=== PATIENT | female | born 1990 | race Caucasian/White ===

== ENCOUNTER 2020-10-12 10:52 | Outpatient (CLI) | payer OTHER, SELFPAY ==
--- NOTE | ~2020-10-12 | CT_ITS ---
EXAMINATION: CT abdomen pelvis wo con EXAM DATE: 10/12/2020 11:21 INDICATION: Left flank pain, LLQ pain. TECHNIQUE: Spiral CT of the abdomen and pelvis was performed without contrast. Axial, coronal and sag ittal images were reviewed. The dose-length product (DLP) for this examination was 1173.39 mGy-cm. The exposure was tailored according to patient size (auto mA exposure control), and iterative reconst ruction (ASIR) was used as additional dose reduction technique. There is no prior study for comparis on. FINDINGS: There is no nephrolithiasis or hydronephrosis. The uterus is unremarkable. The bladder is unremarkable. The liver, spleen, adrenal glands and pancreas are unremarkable. Gallbladder is un remarkable. No biliary obstruction. There is no retroperitoneal or pelvic lymphadenopathy. Small umbilical fat-containing hernia. The appendix is normal. The stomach and small bowel are unremarkable. There is mild scattered colon ic diverticulosis. There is no adjacent inflammatory change to suggest diverticulitis. No free intr aperitoneal gas. The heart is normal in size. There are no pericardial or pleural effusions. The lung bases are unremarkable. The bones are unremarkable. IMPRESSION: 1. No nephrolithiasis, hydronephrosis or acute intra-abdominal findings. Reviewed, dictated and finalized at location B. [employer]IE[employer]
== END 2020-10-12 10:53 ==
PROVIDERS: PCP Physician Assistant; Visit Provider Physician Assistant
DX: R10.32 Left lower quadrant pain (principal)
CPT/HCPCS: 74176

== ENCOUNTER 2021-06-12 11:38 | Emergency (ER) | payer OTHER, SELFPAY ==
[2021-06-12 12:02] VITALS: BP 135/97; PULSE 95; RESP 16; TEMP 36.8; O2SAT 98
--- NOTE | 2021-06-12 12:39 | ED.GENADULT ---
HPI - General Adult General Chief complaint: Unspecified Stated complaint: Lt side facial swelling Source: patient Mode of arrival: ambulatory Limitations: no limitations History of Present Illness HPI narrative: Patient has Related Data Home Medications Medication Instructions Recorded Confirmed alprazolam 0.25 mg tablet 0.25 mg PO .prn tablet 09/01/20 06/12/21 escitalopram oxalate 20 mg tablet 20 mg PO DAILY 09/01/20 06/12/21 Allergies Allergy/AdvReac Type Severity Reaction Status Date / Time Penicillins Allergy Mild Unknown Verified 06/12/21 12:13 Review of Systems Review of Systems: CONSTITUTIONAL: Denies fever, chills, or sweats. EYES: Denies visual changes, redness, or discharge. ENT: Denies rhinorrhea, congestion, sore throat, or otalgia. Reports left facial swelling, tingling and itching CARDIOVASCULAR: Denies chest pain, palpitations, or edema. RESPIRATORY: Denies cough or dyspnea. GASTROINTESTINAL: Denies abdominal pain, nausea, vomiting, or diarrhea. GENITOURINARY: Denies dysuria or hematuria. SKIN: Denies rash or itching. MUSCULOSKELETAL: Denies back pain, joint pain, or myalgia. NEUROLOGIC: Denies headache, numbness, dizziness, or weakness. PSYCHIATRIC: Denies anxiety or depression. [facility] Past Medical History Medical History Anxiety Pneumonia 2020 Surgical History Surgical History History of delivery Family History Family History Grandparent Diabetes mellitus Grandparent Acute myocardial infarction Father Hypertension High cholesterol Social History Social History (Updated 06/12/21 @ 12:46 by JASON Rajan) Smoking status: Never smoker Alcohol intake: never Substance use: never Living arrangements: with family Comments At the time of signature, I have reviewed and agree with nursing past medical, surgical, social, and family history unless otherwise noted. Please see nursing chart for further information. There is no relevant family history pertinent to the presenting complaint. Exam Narrative: GENERAL: Well-appearing, well-nourished, and in no acute distress. HEAD: Normocephalic, atraumatic. EYES: EOMI. No redness or drainage. Conjunctiva are normal. ENT: Mucous membranes pink and moist. Nares clear. No rhinorrhea. TMs normal bilaterally. Throat normal. Uvula midline. NECK: AROM. Supple. Left cervical lymphadenopathy. CHEST: No respiratory distress. HEART: Regular rate and rhythm. EXTREMITIES: Normal range of motion. SKIN: Warm, dry, no rash. NEURO: No focal deficits. Alert and oriented x3. Gait steady. PSYCH: Normal affect. No signs of depression or anxiety. Course Vital Signs Vital signs: Vital Signs Temperature 36.8 C 06/12/21 12:02 Pulse Rate 95 06/12/21 12:02 Respiratory Rate 16 06/12/21 12:02 Blood Pressure 135/97 H 06/12/21 12:02 Pulse Oximetry 98 06/12/21 12:02 Temperature 36.8 C 06/12/21 12:02 Pulse Rate 95 06/12/21 12:02 Respiratory Rate 16 06/12/21 12:02 Blood Pressure 135/97 H 06/12/21 12:02 Pulse Oximetry 98 06/12/21 12:02 Reviewed-patient is informed that they may have pre-hypertension or hypertension based on a blood pressure reading. I recommend the patient call the primary care provider listed on their discharge instructions or a physician of their choice this week to arrange follow-up for further evaluation of possible pre-hypertension or hypertension. Medical Decision Making Differential Diagnosis Differential Diagnosis: Dental abscess, parotiditis, sialadenitis, sialolithiasis, Norton's palsy, allergic reaction Vital Signs Vital Signs: Vital Signs Temperature 36.8 C 06/12/21 12:02 Pulse Rate 95 06/12/21 12:02 Respiratory Rate 16 06/12/21 12:02 Blood Pressure 135/97 H 06/12/21 12:02 Pulse Oximetr
== END 2021-06-12 12:46 | disposition home or self-care (01) ==
PROVIDERS: Emergency Provider Nurse Practitioner; PCP Physician Assistant
DX: R22.0 Localized swelling, mass and lump, head (principal); F41.9 Anxiety disorder, unspecified
CPT/HCPCS: 81025; 99213; G0463

== ENCOUNTER 2023-10-13 07:49 | Outpatient (CLI) | payer OTHER, SELFPAY ==
--- NOTE | 2023-10-13 08:03 | ECG_ITS ---
Measurements Intervals Wallace Rate: 65 P: 52 HI: 154 QRS: 24 QRSD: 102 T: 13 QT: 399 QTc: 415 Interpretive Statements SINUS RHYTHM WITH SINUS ARRHYTHMIA LOW QRS VOLTAGE IN PRECORDIAL LEADS BORDERLINE ECG NO PREVIOUS ECG AVAILABLE FOR COMPARISON Electronically Signed On 10-13-2023 8:28:51 [employer] by Neel Sims D.O.
== END 2023-10-13 07:50 | disposition home or self-care (01) ==
LOC: ANHCARD 07:54
PROVIDERS: PCP Physician Assistant; Visit Provider Nurse Practitioner Family
DX: R93.1 Abnormal findings on diagnostic imaging of heart and coronary circulation (principal); Z13.6 Encounter for screening for cardiovascular disorders
CPT/HCPCS: 93005

== ENCOUNTER → 2025-04-15 14:08 | Outpatient (CLI) | payer OTHER, SELFPAY ==
--- NOTE | ~2025-04-15 | XR_ITS ---
EXAMINATION: XR abdomen/kub 1V DATE: 04/15/2025 14:22 INDICATION: Right flank pain TECHNIQUE: A supine view of the abdomen on 2 radiographs was obtained. COMPARISON: None. FINDINGS: Small amount of colonic gas and stool, predominantly in the proximal colon. No dilated loops of gas-filled bowel to suggest obstruction. No suspicious calcifications in the abdomen or pelvis. Lung bases are clear. Heart size is normal. Bones and soft tissues are unremarkable. IMPRESSION: 1. Normal bowel gas pattern. No calcifications in the abdomen or pelvis. Reviewed, dictated and finalized at location A.
== END ==
LOC: EXPCRAD 14:11
PROVIDERS: PCP Physician Assistant; Visit Provider Physician Assistant
DX: R10.9 Unspecified abdominal pain (principal)
CPT/HCPCS: 74018

== ENCOUNTER 2025-08-04 16:11 | Emergency (ER) | payer OTHER, SELFPAY ==
--- OUTSIDE RECORDS SUMMARY | 2025-08-04 16:14 | XMS_ITS | Clinical Summary ---
Author Organization [facility] [facility] Address [address] [place] [address] Care Team Providers Care Analytics Developer Name Role Phone Luisana Phillips Primary Care Provider [phone]- [phone] Allergies Active Allergy Reactions Criticality Noted Date Comments Doxycycline Rash Medium 11/06/2023 Pt has rash and raised red masked area around mouth Penicillin G Benzathine Swelling Medium 09/06/2019 swelling Medications albuterol HFA (Ventolin HFA) 90 mcg/actuation inhalerIndicatio ns:Lower respiratory infection Inhale 2 puffs every 4 (four) hours as needed for wheezing or shortness of breath 8 g 5 0 Active fluticasone propionate (FLONASE) 50 mcg/actuation nasal sprayIndications :Allergic rhinitis due to pollen, unspecified seasonality Administer 2 sprays into each nostril daily 16 g 5 2 Active omeprazole (PriLOSEC) 20 mg capsule Take 1 capsule (20 mg total) by mouth 2 (two) times a day before breakfast and dinner 60 capsule 3 4 Active traZODone (DESYREL) 50 mg tabletIndication s:Insomnia, unspecified type Take 1 tablet (50 mg total) by mouth nightly 90 tablet 2 4 Active ondansetron (ZOFRAN) 4 mg tabletIndication s:Nausea Take 1 tablet (4 mg total) by mouth every 8 (eight) hours as needed for nausea or vomiting 20 tablet 5 Active desvenlafaxine ER (PRISTIQ) 100 mg 24 hr tablet Take 2 tablets (200 mg total) by mouth daily 5 Active propranolol LA (INDERAL LA) 80 mg 24 hr capsule Take 1 capsule (80 mg total) by mouth daily 5 Active LORazepam (ATIVAN) 1 mg tablet Take 1 tablet (1 mg total) by mouth 3 (three) times a day as needed 5 Active valACYclovir (VALTREX) 1 gram tablet TAKE 1 TABLET(1000 MG) BY MOUTH DAILY 90 tablet 1 5 Active cyclobenzaprine (FLEXERIL) 10 mg tablet TAKE 1 TABLET(10 MG) BY MOUTH EVERY NIGHT 20 tablet 5 Active hydroCHLOROthiaz alberta (HYDRODIURIL) 25 mg tabletIndication s:Hypertension, essential TAKE 1 TABLET(25 MG) BY MOUTH DAILY 90 tablet 1 5 Active Active Problems Problem Noted Date Diagnosed Date Positive depression screening 05/23/2025 Assessment & Plan (05/23/2025 7:45 AM CDT): PHQ-27 Patient has ongoing depression due to losing her daughter. Morbid obesity 05/23/2025 Assessment & Plan (05/23/2025 8:16 AM CDT): Patient has an obesity-related condition (not limited to: hypertension, obstructive sleep apnea, osteoarthritis, hyperlipidemia, diabetes, etc.). Therefore, morbid obesity may be documented for patients with a BMI between 35.00-39.99. Trichomonas vaginitis 05/23/2025 Assessment & Plan (05/23/2025 8:16 AM CDT): Trichomonas was treated. Partner was also treated. Test of cure today. Reviewed with patient's expectations of results and when available if negative may return back to intercourse. MARIYA (obstructive sleep apnea) 05/11/2025 BMI 38.0-38.9,adult 04/30/2025 Assessment & Plan (05/23/2025 7:44 AM CDT): Discussed the patient's BMI. The BMI is above average. BMI management plan is completed. BMI Follow-up includes: nutrition counseling, exercise counseling and education provided. Assessment & Plan (04/30/2025 2:04 PM CDT): Discussed the patient's BMI. The BMI is above average. BMI management plan is completed. BMI Follow-up includes: nutrition counseling, exercise counseling and education provided. Pica 12/15/2024 Menorrhagia with regular cycle 12/15/2024 Immunity status testing 12/15/2024 Grief at loss of child 03/25/2024 Assessment & Plan (05/23/2025 8:15 AM CDT): She is tearful today and just having a rough time. Encouraged her to continue following with her counselor and psychiatrist. She may benefit from time off. She will discuss further with her psychiatrist. If she needs assistance from my office she may call at any time Assessment & Plan (04/07/2024 10:48 PM CDT): Patient is managing as well as expected considering the situation. She has increase the Lexapro to 20 mg. Has diazepam 2 mg to use as needed. Decided to try to keep a max at 10 mg a day and that she can cut them in half as needed. Encouraged to get in with counseling. May call at any time for assistance over the next few days as they will be difficult. Assessment & Plan (04/04/2024 2:51 PM CDT): Patient is continuing to grieve appropriately. The surfaces are done. She still using Valium up to 10 mg and doses during the day with good results. Using the trazodone to assist with sleep. She is eating and beginning to exercise. She had difficulty connecting with [employer] so will work on this so that she can have the support. She has a personal counseling appointment on April 23. Discussed return to work plan. She is going to try to do a couple hours couple times a week and slowly integrate back in as she is able to integrate home and work together. We discussed some techniques to help with those 1st couple of days in the office. Will follow-up in a week to reassess or sooner for any other problems or concerns Assessment & Plan (03/25/2024 9:08 PM CDT): Persistent anxiety that is appropriate based on her situation. Will increase the Lexapro to 20. She has diazepam 2 mg that was called in by her psychiatrist. She is able to take that about every 4-6 hours with a max of 10 mg a day. She inquires about increasing the dose but let her know we need to see how this works to be able to see if we can begin calming things down. Encouraged her to eat. Encouraged her to drink fluids. Encouraged to lean on her family. Provided information about heart link as well as other grief support advised this probably is not something she can think about at this moment but we will help her through. She may call at any time. Provided her back line number. Will see her back on Monday to reassess or sooner for any other problems or concerns Shortness of breath 01/10/2024 Chest pain 01/10/2024 Tension headache 12/26/2023 Assessment & Plan (01/05/2024 10:18 PM CDT): Patient's symptoms seem most consistent with a tension headache. Will try Flexeril as well as treat her symptoms aggressively for allergies with Zyrtec and Flonase Snoring 12/21/2023 Assessment & Plan (01/05/2024 10:13 PM CDT): Sleep study scheduled on December 20. Will await sleep study Assessment & Plan (12/21/2023 11:37 AM CDT): The patient presents with snoring and daytime hypersomnia. Per her request, I will order a home sleep test and she will follow up here in 3 months. Hyperprolactinemia 11/16/2023 Assessment & Plan (01/05/2024 10:12 PM CDT): Awaiting MRI the pituitary. Follow-up pending those results Assessment & Plan (11/16/2023 2:55 PM CDT): Prolactin increased to 33.8. MRI of pituitary gland with contrast ordered to rule out pituitary mass. Prediabetes 11/16/2023 Assessment & Plan (11/16/2023 2:54 PM CDT): HgA1c: 5.7. Pt instructed to limit carbohydrate and sugar intake. Pt was made aware of risk of progression to diabetes. Vitamin D deficiency 11/16/2023 Assessment & Plan (01/05/2024 10:12 PM CDT): Supplement Assessment & Plan (11/16/2023 2:51 PM CDT): Pt instructed to supplement OTC vitamin D tablets into diet. Diabetes mellitus screening 11/12/2023 Assessment & Plan (11/12/2023 6:38 PM CDT): Check labs Insomnia 06/18/2023 Assessment & Plan (01/05/2024 10:12 PM CDT): Continue with trazodone managed by psychiatrist Assessment & Plan (06/18/2023 11:39 PM PULPWOOD DEALER): Continue trazodone Low serum vitamin B12 06/18/2023 Assessment & Plan (01/05/2024 10:12 PM CDT): Supplement Assessment & Plan (06/18/2023 11:39 PM PULPWOOD DEALER): Supplement Mixed hyperlipidemia 06/18/2023 Assessment & Plan (11/12/2023 6:38 PM CDT): Encouraged patient to follow low fat/low chol diet like the Mediterranean diet. Increase good fats in the diet. Increase exercise. Monitor labs as needed. Assessment & Plan (06/18/2023 11:39 PM PULPWOOD DEALER): Encouraged patient to follow low fat/low chol diet like the Mediterranean diet. Increase good fats in the diet. Increase exercise. Monitor labs as needed. Lower respiratory infection 06/18/2023 Perioral dermatitis 06/18/2023 Assessment & Plan (06/18/2023 11:37 PM PULPWOOD DEALER): Rash around the mouth. Suspect perioral dermatitis. Doxycycline 100 b.i.d. for 10 days sit for her BC. Patient is to follow-up if symptoms worsen or do not fully resolve Leg swelling 11/22/2022 Assessment & Plan (11/12/2023 6:41 PM CDT): This is a significant, separately identifiable problem that was evaluated and managed on the same day as the wellness exam Start HCTZ to see if helps with the swelling -- Reviewed risks benefits alternatives side effects and proper use Assessment & Plan (11/22/2022 12:38 PM CDT): Patient has noticed leg swelling. Reviewed dash diet to decrease her sodium intake. Also encouraged support stockings and measured the calf so she can size and correctly. Will start hydrochlorothiazide 12.5 mg daily in the a.m.. If symptoms worsen may increase to 25. Reassess in about 3 months Angioedema 10/02/2022 Assessment & Plan (10/02/2022 6:00 PM PULPWOOD DEALER): Patient has had multiple episodes of what sounds like angioedema. Had her last visit discussed referral to agency director this was provided. She did not keep the appointment. She still has the contact information. She currently feels like it has been pretty well controlled with H2 lux antihistamine but reviewed with her that this could change at any time if she could have a life-threatening reaction. Strongly encouraged her to follow-up with the agency director for full evaluation. She verbalizes understanding plans to follow-up Mastodynia of right breast 10/02/2022 Assessment & Plan (10/02/2022 6:01 PM PULPWOOD DEALER): This is a significant, separately identifiable problem that was evaluated and managed on the same day as the wellness exam Patient is complaining of breast pain in the right mid axillary line. Went her brow is put up against this area appears to be wire that is mid axillary line poking right there. She actually is tender on the left side in the same area and did not realize it. Encouraged to change bowels out or been the broad so that wire does not keep hitting. If she has persistent symptoms that do not resolve with this modification she is to follow up in the office for further evaluation. Sleep disturbances 10/02/2022 Assessment & Plan (10/02/2022 6:02 PM PULPWOOD DEALER): Significant improvement with trazodone 50 mg at bedtime. Continue with same regimen Acute upper respiratory infection 10/13/2021 Assessment & Plan (10/13/2021 2:17 PM PULPWOOD DEALER): Start antibiotic, antihistamine (Claritin OR Zyrtec), Mucinex 12hour /Cherratussin and Steroid nasal spray (Flonase) and albuterol prn. Push fluids. Rest. Supportive care. If sxs worsen or don\'t improve, pt is to followup in the office. Morbid obesity 09/23/2021 Assessment & Plan (04/30/2025 2:04 PM CDT): Discussed the patient's BMI. The BMI is above average. BMI management plan is completed. BMI Follow-up includes: nutrition counseling, exercise counseling and education provided. Assessment & Plan (12/02/2024 2:35 PM CDT): Discussed the patient's BMI. The BMI is above average. BMI management plan is completed. BMI Follow-up includes: nutrition counseling, exercise counseling and education provided. Assessment & Plan (01/05/2024 10:12 PM CDT): Discussed the patient's BMI. The BMI is above average. BMI management plan is completed. BMI Follow-up includes: nutrition counseling, exercise counseling and education provided. Assessment & Plan (11/16/2023 2:46 PM CDT): PCOS ruled out. Lab results positive for hyperprolactinemia. Will continue to work this up with imaging. Pt educated on importance of exercise and healthy diet. Assessment & Plan (11/12/2023 6:36 PM CDT): Discussed the patient's BMI. The BMI is above average. BMI management plan is completed. BMI Follow-up includes: nutrition counseling, exercise counseling and education provided. Patient has an obesity-related condition (not limited to: hypertension, obstructive sleep apnea, osteoarthritis, hyperlipidemia, diabetes, etc.). Therefore, morbid obesity may be documented for patients with a BMI between 35.00-39.99. Assessment & Plan (06/18/2023 11:37 PM PULPWOOD DEALER): Discussed the patient's BMI. The BMI is above average. BMI management plan is completed. BMI Follow-up includes: nutrition counseling, exercise counseling and education provided. . Patient has an obesity-related condition (not limited to: hypertension, obstructive sleep apnea, osteoarthritis, hyperlipidemia, diabetes, etc.). Therefore, morbid obesity may be documented for patients with a BMI between 35.00-39.99. Assessment & Plan (11/22/2022 12:37 PM CDT): Discussed the patient's BMI. The BMI is above average. BMI management plan is completed. BMI Follow-up includes: nutrition counseling, exercise counseling and education provided. Patient has an obesity-related condition (not limited to: hypertension, obstructive sleep apnea, osteoarthritis, hyperlipidemia, diabetes, etc.). Therefore, morbid obesity may be documented for patients with a BMI between 35.00-39.99. Assessment & Plan (10/02/2022 5:59 PM PULPWOOD DEALER): Discussed the patient's BMI. The BMI is above average. BMI management plan is completed. BMI Follow-up includes: nutrition counseling, exercise counseling and education provided. Patient has an obesity-related condition (not limited to: hypertension, obstructive sleep apnea, osteoarthritis, hyperlipidemia, diabetes, etc.). Therefore, morbid obesity may be documented for patients with a BMI between 35.00-39.99. Assessment & Plan (09/23/2021 8:47 AM PULPWOOD DEALER): Obesity is unchanged. Discussed the patient's BMI. The BMI is above average. BMI management plan is completed. BMI Follow-up includes: nutrition counseling, exercise counseling and education provided. Fatigue 09/23/2021 Assessment & Plan (11/12/2023 6:36 PM CDT): Probably multifactorial. Check labs and followup to re-evaluate Assessment & Plan (06/18/2023 11:38 PM PULPWOOD DEALER): Probably multifactorial. Check labs and followup to re-evaluate Assessment & Plan (10/02/2022 5:59 PM PULPWOOD DEALER): Probably multifactorial. Check labs and followup to re-evaluate Assessment & Plan (09/23/2021 7:07 PM PULPWOOD DEALER): Probably multifactorial. Check labs and followup to re-evaluate Hirsutism 09/23/2021 Assessment & Plan (11/12/2023 6:37 PM CDT): This is a significant, separately identifiable problem that was evaluated and managed on the same day as the wellness exam Patient is frustrated with her weight. She is having more irregular periods. She notes increased facial hair but hair thinning on her head as well as striae and has had difficulty with infertility. She has never conceived. She denies any galactorrhea. Has never been screened for PCOS. Recommend starting with PCOS screening by labs and follow-up pending those results. If PCOS is present will aggressively treat. If he has not will aggressively treat her weight and consider a G LP Assessment & Plan (09/23/2021 7:08 PM PULPWOOD DEALER): Patient has always had a little excessive growth above her lip. Will check PCOS androgens due to the difficulty with weight loss. Allergic reaction 08/17/2021 Assessment & Plan (08/17/2021 3:54 PM PULPWOOD DEALER): Kenalog 40mg im now Will start mdp tomorrow Can continue with benadryl as needed for itching Will refer to agency director for further eval and treatment Advised her to abstain from makeup and contacts at this time. Discussed starting fresh/new when resuming makeup. Also encouraged her to avoid botox at this time as precipitant is unknown. Daytime sleepiness 07/25/2021 Assessment & Plan (11/12/2023 6:36 PM CDT): This is a significant, separately identifiable problem that was evaluated and managed on the same day as the wellness exam Patient has noticed increased daytime sleepiness and grinding of her teeth. She has many symptoms as well as body habitus consistent with increased risk for sleep apnea. Referral to Dr. Knott for further evaluation Assessment & Plan (09/23/2021 7:06 PM PULPWOOD DEALER): This is a significant, separately identifiable problem that was evaluated and managed on the same day as the wellness exam Patient continues to have daytime sleepiness, fatigue and mouth dryness in the morning.. Discussed at last visit referral to Dr. Knott and she would like to follow through. Assessment & Plan (07/25/2021 12:32 PM PULPWOOD DEALER): Daytime sleepiness is becoming more evident. She feels like she is getting good sleep but just is tired all the time. Is a very active dreamer. . Will refer to Sleep Medicine for evaluation and probable sleep study. Annual physical exam 01/21/2021 Assessment & Plan (11/12/2023 6:24 PM CDT): Encouraged healthy lifestyle, good nutrition and exercise. Encouraged Calcium and Vitamin D and weight bearing exercise for bone health. Reviewed immunizations Reviewed age appropirate screenings. Assessment & Plan (10/02/2022 5:59 PM PULPWOOD DEALER): Encouraged healthy lifestyle, good nutrition and exercise. Encouraged Calcium and Vitamin D and weight bearing exercise for bone health. Reviewed immunizations Reviewed age appropirate screenings. Assessment & Plan (09/23/2021 7:02 PM PULPWOOD DEALER): Encouraged healthy lifestyle, good nutrition and exercise. Encouraged Calcium and Vitamin D and weight bearing exercise for bone health. Reviewed immunizations Reviewed age appropirate screenings. History of 2019 novel coronavirus disease (COVID -19) 07/12/2020 Overview (07/12/2020): Positive per patient in early July. Encounter for preconception consultation 020 Assessment & Plan (09/23/2021 7:05 PM PULPWOOD DEALER): This is a significant, separately identifiable problem that was evaluated and managed on the same day as the wellness exam Patient desires . She and her partner have been attempting intercourse for over a year without success. Discussed at length today ovulatory cycling not predict ovulation as well as ovulatory testing that is available [id number]. Encouraged them to discontinue using lubricants as this may impede spasms ability to travel to the a ago. Also encouraged her course every other day. If they are not successful over the next 3-4 months with conception will encourage her to follow-up with human resources assistant manager/[facility] for further evaluation. She is already on a reading a vitamin. Assessment & Plan (06/12/2020 9:40 PM PULPWOOD DEALER): Start PNV Reviewed good nutrition Reviewed medications/ safety. Moderate episode of recurrent major depressive d isorder 09/30/2019 Assessment & Plan (01/05/2024 10:11 PM CDT): Continue per psychiatrist's. Currently on Lexapro 10 trazodone 50 and Concerta ER 18 Assessment & Plan (06/18/2023 11:38 PM PULPWOOD DEALER): Patient with history of depression. Has been on Wellbutrin XL 300 Lexapro 15 with a p.r.n. Xanax and trazodone to sleep. Still feels like there is just a little room for improvement. Will go ahead and increase the Lexapro to 20 mg. Monitor and if gone enough may consider adding Abilify follow-up in 6-8 weeks to reassess or sooner problems or concerns Assessment & Plan (11/22/2022 12:37 PM CDT): Patient has seen improvement with the addition of Wellbutrin and Lexapro together. Continue 300 of the Wellbutrin. Increase the Lexapro to 15 mg which will be taking 1-1/2 of the 10 mg tablets. Reassess in 3 months. Still has a Xanax p.r.n. and is using trazodone to sleep. Assessment & Plan (10/02/2022 5:59 PM PULPWOOD DEALER): This is a significant, separately identifiable problem that was evaluated and managed on the same day as the wellness exam Anxiety is definitely better with the Wellbutrin but still for room for improvement. Still having mild breakthrough anxiety symptoms almost every day. Willing to increase the dose to 300. May take 2 of the 150 mg tablets until she is exhausted the supply. Will then increase to 1 of the 300 mg tablets daily. Follow-up in about 6-8 weeks to reassess. Assessment & Plan (09/23/2021 7:00 PM PULPWOOD DEALER): This is a significant, separately identifiable problem that was evaluated and managed on the same day as the wellness exam Patient has noted increased depression anxiety symptoms. She is currently on Lexapro 10 mg. She is tolerating well. Willing to increase the tips. She may take 2 of her 10 mg tablets until they are gone and then showed will return to 1 20 mg tablet. She is to follow-up in 6-8 weeks to reassess. Assessment & Plan (08/20/2020 9:49 AM PULPWOOD DEALER): Increase lexapro to 20mg. Reassess in 4-6 weeks. Assessment & Plan (06/12/2020 9:36 PM PULPWOOD DEALER): Discussed treatment of her depression anxiety. Reviewed risks, benefit, alternatives, side effects and proper use. Reviewed safety profiles of meds with . Start lexapro 10mg and monitor closely. Assessment & Plan (01/15/2020 10:02 AM CDT): Continue Lexapro 20mg. Start [id number] qam. Reviewed risks, benefit, alternatives, side effects and proper use. May still use xanax prn. F.u 8 weeks to reassess. Assessment & Plan (11/11/2019 9:41 AM CDT): Increase Lexapro to 20mg. Continue xanax prn. Call if increased sxs or problems. Assessment & Plan (09/30/2019 10:59 PM PULPWOOD DEALER): This is a significant, separately identifiable problem that was evaluated and managed on the same day as the wellness exam Discussed treatment options at length. Reviewed risks, benefit, alternatives, side effects and proper use. Start Lexapro 10mg one daily. Xanax to have prn. F.u in 4-6 weeks to reassess. Anxiety 03/30/2016 Assessment & Plan (04/07/2024 10:48 PM CDT): Patient is managing as well as expected considering the situation. She has increase the Lexapro to 20 mg. Has diazepam 2 mg to use as needed. Decided to try to keep a max at 10 mg a day and that she can cut them in half as needed. Encouraged to get in with counseling. May call at any time for assistance over the next few days as they will be difficult. Assessment & Plan (03/25/2024 9:08 PM CDT): Persistent anxiety that is appropriate based on her situation. Will increase the Lexapro to 20. She has diazepam 2 mg that was called in by her psychiatrist. She is able to take that about every 4-6 hours with a max of 10 mg a day. She inquires about increasing the dose but let her know we need to see how this works to be able to see if we can begin calming things down. Encouraged her to eat. Encouraged her to drink fluids. Encouraged to lean on her family. Provided information about heart link as well as other grief support advised this probably is not something she can think about at this moment but we will help her through. She may call at any time. Provided her back line number. Will see her back on Monday to reassess or sooner for any other problems or concerns Assessment & Plan (11/12/2023 6:40 PM CDT): Continue per the psychiatrist Dr. Shobha Rose in [place] Assessment & Plan (06/18/2023 11:38 PM PULPWOOD DEALER): Patient with history of depression. Has been on Wellbutrin XL 300 Lexapro 15 with a p.r.n. Xanax and trazodone to sleep. Still feels like there is just a little room for improvement. Will go ahead and increase the Lexapro to 20 mg. Monitor and if gone enough may consider adding Abilify follow-up in 6-8 weeks to reassess or sooner problems or concerns Assessment & Plan (11/22/2022 12:37 PM CDT): Patient has seen improvement with the addition of Wellbutrin and Lexapro together. Continue 300 of the Wellbutrin. Increase the Lexapro to 15 mg which will be taking 1-1/2 of the 10 mg tablets. Reassess in 3 months. Still has a Xanax p.r.n. and is using trazodone to sleep. Assessment & Plan (10/02/2022 5:59 PM PULPWOOD DEALER): This is a significant, separately identifiable problem that was evaluated and managed on the same day as the wellness exam Anxiety is definitely better with the Wellbutrin but still for room for improvement. Still having mild breakthrough anxiety symptoms almost every day. Willing to increase the dose to 300. May take 2 of the 150 mg tablets until she is exhausted the supply. Will then increase to 1 of the 300 mg tablets daily. Follow-up in about 6-8 weeks to reassess. Assessment & Plan (08/28/2022 9:20 PM PULPWOOD DEALER): Discussed treatment options Encouraged counseling. Reviewed medication choices including risks benefits alternatives side effects and proper use. Discussed benzodiazepines and their addictive dependency characteristics and that we need to use caution with those use them in acute situations. Did not tolerate Lexapro as felt too sleepy. No history of seizures. Will try Wellbutrin XL 150 q.a.m.. Stressed must take 1st thing in the morning. Will reassess in 4-6 weeks and see if this is helping. If she needs us before then she can call at any time Assessment & Plan (09/23/2021 7:00 PM PULPWOOD DEALER): See depression Assessment & Plan (07/25/2021 12:31 PM PULPWOOD DEALER): Reviewed with patient that it is unusual to increase to Lexapro 20 and have increased sleepiness. Will go ahead and continue with the 10 mg for now. Will workup sleep apnea with a sleep evaluation and reassess in a few months. Assessment & Plan (08/20/2020 9:50 AM PULPWOOD DEALER): See depression Assessment & Plan (06/12/2020 9:36 PM PULPWOOD DEALER): See depression Assessment & Plan (01/15/2020 10:02 AM CDT): See depression Assessment & Plan (11/11/2019 9:41 AM CDT): Increase Lexapro to 20mg. Continue xanax prn. Call if increased sxs or problems. Assessment & Plan (09/30/2019 10:59 PM PULPWOOD DEALER): See depression Resolved Problems Problem Noted Date Diagnosed Date Resolved Date BMI 39.0-39.9,adult 04/15/2025 05/11/20 25 Assessment & Plan (04/15/2025 2:08 PM CDT): Discussed the patient's BMI. The BMI is above average. BMI management plan is completed. BMI Follow-up includes: nutrition counseling, exercise counseling and education provided. Obesity (BMI 30-39.9) 04/15/20252024 Assessment & Plan (04/15/2025 2:08 PM CDT): Discussed the patient's BMI. The BMI is above average. BMI management plan is completed. BMI Follow-up includes: nutrition counseling, exercise counseling and education provided. Dysmenorrhea 12/15/2024 05/11/2025 Lipid screening 12/15/2024 05/11/2025 Need for diphtheria-tetanus- pertussis (Tdap) vaccine 12/15/2024 04/29/2025 Positive depression screening 12/02/2024 12/15/2024 BMI 40.0-44.9, adult 12/02/2024 025 Assessment & Plan (12/02/2024 2:35 PM CDT): Discussed the patient's BMI. The BMI is above average. BMI management plan is completed. BMI Follow-up includes: nutrition counseling, exercise counseling and education provided. Nausea 03/25/2024 12/15/2024 Assessment & Plan (03/25/2024 9:06 PM CDT): Milton jeffrey Nausea and vomiting 01/10/2024 03/25/20 Low vitamin D level 06/18/2023 12/26/19 24 Assessment & Plan (11/12/2023 6:37 PM CDT): Supplement Assessment & Plan (06/18/2023 11:39 PM PULPWOOD DEALER): Supplement BMI 36.0-36.9,adult 06/18/2023 11/06/19 Assessment & Plan (06/18/2023 11:39 PM PULPWOOD DEALER): Discussed the patient's BMI. The BMI is above average. BMI management plan is completed. BMI Follow-up includes: nutrition counseling, exercise counseling and education provided. BMI 38.0-38.9,adult 11/22/2022 06/07/20 Assessment & Plan (11/22/2022 11:50 AM CDT): Discussed the patient's BMI. The BMI is above average. BMI management plan is completed. BMI Follow-up includes: nutrition counseling, exercise counseling and education provided. Lipid screening 10/02/2022 11/12/2023 Assessment & Plan (11/12/2023 6:37 PM CDT): Check labs Assessment & Plan (10/02/2022 5:59 PM PULPWOOD DEALER): Check labs BMI 38.0-38.9,adult 09/26/2022 11/23/19 Assessment & Plan (09/26/2022 11:48 AM PULPWOOD DEALER): Discussed the patient's BMI. The BMI is above average. BMI management plan is completed. BMI Follow-up includes: nutrition counseling, exercise counseling and education provided. BMI 39.0-39.9,adult 09/23/2021 09/26/19 Assessment & Plan (09/23/2021 8:47 AM PULPWOOD DEALER): Obesity is unchanged. Discussed the patient's BMI. The BMI is above average. BMI management plan is completed. BMI Follow-up includes: nutrition counseling, exercise counseling and education provided. Diabetes mellitus screening 09/23/2021 11/22/2022 Assessment & Plan (10/02/2022 5:59 PM PULPWOOD DEALER): Check labs Assessment & Plan (09/23/2021 7:08 PM PULPWOOD DEALER): Check labs Perioral dermatitis 07/25/2021 09/23/19 Assessment & Plan (07/25/2021 12:32 PM PULPWOOD DEALER): Doxycycline 100 mg b.i.d. for 10 days. Of stop chapstick brand and try bruits bees or something else as may be having a reaction to it. Facial tingling 06/10/2021 09/23/2021 Assessment & Plan (06/10/2021 12:32 PM CDT): Patient advised given tingling and severity of symptoms/progression of, to seek urgent assistance today at the ER. Neck swelling 06/10/2021 09/23/2021 Assessment & Plan (06/10/2021 12:32 PM CDT): Patient advised given tingling and severity of symptoms/progression of, to seek urgent assistance today at the ER. Non-recurrent acute suppurat haider otitis media of right ear without spontaneous rupture of tympanic membrane 12/21/2020 09/23/2021 Assessment & Plan (12/21/2020 5:29 PM CDT): Advised increased fluids, zpack x 1. Advised f/u in 1w if not improving, sooner if worsening. BMI 38.0-38.9,adult 10/12/2020 09/23/19 Assessment & Plan (06/10/2021 12:03 PM CDT): Obesity is unchanged. Discussed the patient's BMI. The BMI is above average. BMI management plan is completed. BMI Follow-up includes: nutrition counseling, exercise counseling and education provided. Assessment & Plan (12/21/2020 3:21 PM CDT): Obesity is unchanged. Discussed the patient's BMI. The BMI is above average. BMI management plan is completed. BMI Follow-up includes: nutrition counseling, exercise counseling and education provided. Assessment & Plan (10/12/2020 8:43 AM PULPWOOD DEALER): Obesity is unchanged. Discussed the patient's BMI. The BMI is above average. BMI management plan is completed. BMI Follow-up includes: nutrition counseling, exercise counseling and education provided. Obesity (BMI 30-39.9) 10/12/20202021 Assessment & Plan (06/10/2021 12:03 PM CDT): Obesity is unchanged. Discussed the patient's BMI. The BMI is above average. BMI management plan is completed. BMI Follow-up includes: nutrition counseling, exercise counseling and education provided. Assessment & Plan (12/21/2020 7:29 PM CDT): Obesity is unchanged. Discussed the patient's BMI. The BMI is above average. BMI management plan is completed. BMI Follow-up includes: nutrition counseling, exercise counseling and education provided. She will discontinue phentermine. She declines repeat labs at this time. She will monitor macros through rimma such as my fitness pal. Encouraged continued attempts at exercise. Will add wellbutrin to assist in endeavors. Advised tapering and discontinuing lexapro, however she reports Luisana has had her take both at the same time in the past without difficulty. She will f/u with pcp in 30d to reevaluate weight and meds. Assessment & Plan (10/12/2020 8:43 AM PULPWOOD DEALER): Obesity is unchanged. Discussed the patient's BMI. The BMI is above average. BMI management plan is completed. BMI Follow-up includes: nutrition counseling, exercise counseling and education provided. Left flank pain 10/12/2020 09/23/2021 Assessment & Plan (10/12/2020 10:34 AM PULPWOOD DEALER): See LLQpain Left lower quadrant pain 10/12/2020 Assessment & Plan (10/12/2020 10:34 AM PULPWOOD DEALER): 2 day history of flank/left sided abdominal pain. Pt is guarding. No hematuria. Kidney stone vs. Diverticulitis vs other etiology. Recommend CT abd/pelvis with and without contrast. Insurance would only approve without contrast. Sent to [facility] today STAT hold and call. Pt last ate last night. Flank pain 10/12/2020 10/12/2020 Frequent urination 10/12/2020 Assessment & Plan (10/12/2020 10:36 AM PULPWOOD DEALER): Urine dip negative for infection. BMI 37.0-37.9, adult 08/20/2020 025 Assessment & Plan (01/05/2024 10:11 PM CDT): Discussed the patient's BMI. The BMI is above average. BMI management plan is completed. BMI Follow-up includes: nutrition counseling, exercise counseling and education provided. Assessment & Plan (11/16/2023 2:45 PM CDT): PCOS ruled out. Lab results positive for hyperprolactinemia. Will continue to work this up with imaging. Pt educated on importance of exercise and healthy diet. Assessment & Plan (11/12/2023 6:35 PM CDT): Discussed the patient's BMI. The BMI is above average. BMI management plan is completed. BMI Follow-up includes: nutrition counseling, exercise counseling and education provided. Patient has an obesity-related condition (not limited to: hypertension, obstructive sleep apnea, osteoarthritis, hyperlipidemia, diabetes, etc.). Therefore, morbid obesity may be documented for patients with a BMI between 35.00-39.99. Assessment & Plan (08/20/2020 9:22 AM PULPWOOD DEALER): Obesity is unchanged. Discussed the patient's BMI. The BMI is above average. BMI management plan is completed. BMI Follow-up includes: nutrition counseling, exercise counseling and education provided. Fatigue 06/12/2020 08/20/2020 Assessment & Plan (06/12/2020 9:38 PM PULPWOOD DEALER): Probably multifactorial. Check labs and followup to re-evaluate Diabetes mellitus screening 06/12/2020 08/20/2020 Assessment & Plan (06/12/2020 9:38 PM PULPWOOD DEALER): Check labs Lower respiratory infection 05/15/2020 06/12/2020 Assessment & Plan (05/15/2020 8:25 AM CDT): Will continue with mucinex Declines cxr at this time - will pursue further if not improving monday She will call Monday if not improving, report to er this if worsening We discussed note for work - advised rest today. She will let us know if she needs a note. BMI 37.0-37.9, adult 01/15/2020 021 Assessment & Plan (06/12/2020 9:37 PM PULPWOOD DEALER): Obesity is unchanged. Discussed the patient's BMI. The BMI is above average. BMI management plan is completed. BMI Follow-up includes: nutrition counseling, exercise counseling and education provided. Assessment & Plan (01/15/2020 9:29 AM CDT): Obesity is unchanged. Discussed the patient's BMI. The BMI is above average. BMI management plan is completed. BMI Follow-up includes: nutrition counseling, exercise counseling and education provided. Obesity (BMI 30-39.9) 01/15/20202020 Assessment & Plan (08/20/2020 9:47 AM PULPWOOD DEALER): Obesity is unchanged. Discussed the patient's BMI. The BMI is above average. BMI management plan is completed. BMI Follow-up includes: nutrition counseling, exercise counseling and education provided. Assessment & Plan (06/12/2020 9:36 PM PULPWOOD DEALER): Obesity is unchanged. Discussed the patient's BMI. The BMI is above average. BMI management plan is completed. BMI Follow-up includes: nutrition counseling, exercise counseling and education provided. Assessment & Plan (01/15/2020 9:30 AM CDT): Obesity is unchanged. Discussed the patient's BMI. The BMI is above average. BMI management plan is completed. BMI Follow-up includes: nutrition counseling, exercise counseling and education provided. Obesity (BMI 35.0-39.9 without comorbidity) 09/30/2019 01/15/2020 Assessment & Plan (09/30/2019 10:58 PM PULPWOOD DEALER): Obesity is unchanged. Discussed the patient's BMI. The BMI is above average. BMI management plan is completed. BMI Follow-up includes: nutrition counseling, exercise counseling and education provided. BMI 35.0-35.9,adult 09/30/2019 01/15/20 20 Assessment & Plan (09/30/2019 10:59 PM PULPWOOD DEALER): Obesity is unchanged. Discussed the patient's BMI. The BMI is above average. BMI management plan is completed. BMI Follow-up includes: nutrition counseling, exercise counseling and education provided. Annual physical exam 09/30/2019 020 Assessment & Plan (09/30/2019 10:59 PM PULPWOOD DEALER): Encouraged healthy lifestyle, good nutrition and exercise. Encouraged Calcium and Vitamin D and weight bearing exercise for bone health. Reviewed immunizations Reviewed age appropirate screenings. Influenza B 09/06/2019 09/30/2019 Assessment & Plan (09/06/2019 12:15 PM PULPWOOD DEALER): Tamiflu 75 mg BID x 5 days. Alternate ibuprofen with Tylenol as directed as needed for fever, headache, and body aches. Instructed to increase clear liquids, rest, and vitamin C in diet. Advised to sleep with head elevated, use a cool mist vaporizer at bedtime, a tsp of honey to soothe throat, and Vicks VapoRub for cough. Recommended follow-up with PCP if symptoms worsen, don't improve, or new symptoms develop. Cough 09/06/2019 09/30/2019 Assessment & Plan (09/06/2019 12:16 PM PULPWOOD DEALER): Rapid influenza test was positive for type B influenza. Encounters Date Type Department Care Team Description 05/24/2025 Results Follow-Up [address] [place] [address] Luisana Phillips PA SURESWAB(R), CT/NG, T VAGINALIS 05/23/2025 7:30 AM CDT Office Visit [address] [place] [address] Luisana hPillips PA Trichomonas vaginitis (Primary Dx); Grief at loss of child; Morbid obesity (HCC); BMI 38.0-38.9,adult from Last 3 Months Immunizations Immunization Administration Dates Next Due Influenza, Unspecified 05/23/2025(Deferr ed: Patient Refused - will recieve at work),05/26/2023,09/07/2022(Deferred: Patient Refused),05/16/2022(Deferred: 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),09/23/2021(Deferred: Patient Refused),09/30/2019(Deferred: Patient Refused) Tdap 12/02/2024,10/06/2011 Surgical History Surgery Date Site/Laterality Comments D&C FIRST TRIMESTER / TX INC OMPLETE / MISSED / SEPTIC / INDUCED SECTION 10/06/2011 - 11/05/2011 Medical History Medical History Date Comments Anxiety GERD (gastroesophageal reflux disease) Dysphagia Family History Medical History Relation Name Comments Trauma - 4 hough accident Daughter Hyperlipidemia Father Hypertension Father Heart attack Maternal Grandfather Cancer Maternal Grandmother Diabetes Maternal Grandmother Leukemia Maternal Grandmother No Known Problems Mother Heart disease Paternal Grandfather Relation Name Status Comments Daughter Father Alive Maternal Grandfather Maternal Grandmother Mother Alive Paternal Grandfather Social History Tobacco Use Types Packs/Day Years Used Date Smoking Tobacco: Never Smokeless Tobacco: Never Tobacco Cessation:Counseling Given: Not Answered Alcohol Use Standard Drinks/Week Comments Not Currently 0 (1 standard drink = 0.6 oz pur e alcohol) socially PHQ-2 Answer Date Recorded PHQ-2 Total Score (If total score is 3 or more points, staff should administer the PHQ-9) 6 05/23/2025 PHQ-9 Answer Date Recorded PHQ-9 Total Score 27 05/23/2025 AUDIT-C Answer Date Recorded Q1: How often do you have a drink containing alcohol? Never 05/23/2025 Q2: How many drinks containi ng alcohol do you have on a typical day when you are drinking? Patient does not drink Q3: How often do you have si x or more drinks on one occasion? Never 05/23/2025 Personal Safety Answer Date Recorded Have you ever been in or are you currently in a harmful physical or emotional relationship or is someone making you feel afraid or unsafe? 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 Not on file Not on file Not on latrice e Last Filed Vital Signs Vital Sign Reading Time Taken Comments Blood Pressure 128/74 05/23/2025 7:37 AM CDT Pulse 85 05/23/2025 7:37 AM CDT Temperature 37 C (98.6 F) 05/23/2025 7:37 AM CDT Respiratory Rate 18 10/28/2024 10:15 AM CDT Oxygen Saturation 97% 05/23/2025 7:37 AM CDT Inhaled Oxygen Concentration - - Weight 110.2 kg (243 lb) 05/23/2025 7:37 AM CDT Height 170.2 cm (5' 7) 05/23/2025 7:37 AM CDT Body Mass Index 38.06 05/23/2025 7:37 AM CDT Plan of Treatment Health Maintenance Due Date Last Done Comments Hepatitis C Screening 1988 Varicella Vaccines (1 of 2 - 13+ 2-dose series) 01/12/2001 Hepatitis B Screening 01/12/2006 HPV Vaccines (1 - 3-dose SCDM series) 01/12/2015 Covid-19 Vaccine ( season) 2025 06/29/2021, 11/09/2020, 10/18/2020 Influenza Vaccine (#1) 2025 05/26/2023 Regular Well Visit/Exam 18-64 04/30/2026 04/30/2025, 11/06/2023, 09/26/2022, Additional history exists Depression Screening 05/23/2026 05/23/2025, 05/23/2025, 04/15/2025, Additional history exists Cervical Cancer Screening 04/30/2030 04/30/2025, 09/2014 DTaP/Tdap/Td Vaccine (3 - Td or Tdap) 12/02/2034 12/02/2024, 10/06/2011 Pneumococcal vaccine <65 Aged Out No longer eligible based on patient's age to complete this topic Procedures Procedure Name Priority Date/Time Associated Diagnosis Comments SURESWAB(R), CT/NG, T VAGINALIS Routine 05/23/2025 8:15 AM CDT Trichomonas vaginitis PAP AND HPV, REFLEX TO HPV GENOTYPES Routine 04/30/2025 3:19 PM CDT Cervical cancer screening from Last 3 Months or Most Recently Relevant to Health Maintenance Results * SURESWAB(R), CT/NG, T VAGINALIS (05/23/2025 8:15 AM CDT) C. trachomatis RNA NOT DETECTED NOT DETECTED [facility] N. gonorrhoeae RNA NOT DETECTED NOT DETECTED [facility] Comment [facility] [place] Comment: The analytical performance characteristics of this assay, when used to test SurePath(TM) specimens have been determined by [employer] [facility] [employer]. The modifications have not been cleared or approved by the FDA. This assay has been validated pursuant to the CLIA regulations and is used for clinical purposes. For additional information, please refer to https://education.Naverus.Bazari/faq/WQN084 (This link is being provided for information/ educational purposes only.) Trichomonas vaginalis NOT DETECTED NOT DETECTED [facility] [place] Comment: For additional information, please refer to http://education.Naverus.Bazari/ faq/Trichomonastma (This link is being provided for informational/ educational purposes only.) Endocervical/vag inal 05/23/2025 8:15 AM CDT 05/24/2025 5:45 AM CDT Luisana DANG LAB BLOOD ORDERABLES Final Result [facility] [address] [phone] * Pap and HPV, reflex to HPV Genotypes (04/30/2025 3:19 PM CDT) CLINICAL INFORMATION: [facility] Comment:CERVICAL CANCER SCRE ENING LMP [facility] Comment:04/22 Previous Pap [facility] Comment:NONE GIVEN Prev. Bx [facility] Comment:NONE GIVEN SOURCE: [facility] Comment:Cervix, Endocervix Pap, specimen adequacy [facility] Comment: Satisfactory for evaluation. Endocervical/transformation zone component present. HPV interp [facility] Comment: Cytology Results: Negative for intraepithelial lesion or malignancy. COMMENTS [facility] Comment: This Pap test has been evaluated with the ThinPrep(R) Imaging System. Order Detailer [facility] Comment: BRIAN GUZMAN(ASCP) CT Screening Location: [place] [address] [place] [address] CLIA: [id number] Slide preparation performed at: [facility], [address] [place] [address], [id number] CLIA: [id number] Comment [facility] Comment: EXPLANATORY NOTE: The Pap is a screening test for cervical cancer. It is not a diagnostic test and is subject to false negative and false positive results. It is most reliable when a satisfactory sample, regularly obtained, is submitted with relevant clinical findings and history, and when the Pap result is evaluated along with historic and current clinical information. Human papillomavirus DNA, High Risk E6/E7 Not Detected NOT DETECTED [facility] Comment: Not Detected High Risk HPV types (16,18,31,33,35,39,45,51,52, 56,58,59,66,68) were not detected. Other HPV types which cause anogenital lesions may be present. The significance of the other types of HPV in malignant processes has not been established. Methodology: Real Time PCR Thin prep-Endocervica l 04/30/2025 3:19 PM CDT 05/01/2025 4:16 PM CDT Luisana DANG LAB CYTOLOGY ORDERABLES nal Result [facility] [address] [place] [address] [facility] [facility] [phone] from Last 3 Months or Most Recently Relevant to Health Maintenance Insurance [facility] HMO/POS [facility] HMO [employer] COVENTRY HMO/POS Care Teams Analytics Developer Relationship Specialty Start Date End Date Luisana Phillips PA [address] [place], [place] [id number] PCP - General Internal Medicine 08/20/19
[2025-08-04 16:26] VITALS: BP 118/77; PULSE 72; RESP 12; TEMP 35.7; O2SAT 100
--- NOTE | 2025-08-04 17:07 | ED.NAVMDI ---
HPI - Nausea/Vomiting/Diarrhea General Chief complaint: Nausea/Vomiting/Diarrhea Stated complaint: Nausea/Vomiting/Diarrhea Time Seen by Provider: 08/04/25 16:59 Source: patient and RN notes reviewed Mode of arrival: ambulatory Limitations: no limitations History of Present Illness HPI Narrative: 35-year-old female patient presents today complaining of nausea, vomiting, diarrhea since last night. Reports 3 episodes of vomiting since last night, last this morning. Reports 20+ episodes of diarrhea, last just prior to arrival. Stool is watery without blood or mucus. Reports persistent nausea. Denies abdominal pain or fever. She has taken Imodium a Pepto this morning with some improvement in symptoms. Patient has not attempted oral fluids since her last vomiting episode. No suspicious food intake, recent out of country travel. No known sick contacts. Related Data Home Medications ?Medication ?Instructions ?Recorded ?Confirmed ?Last Taken ?Type alprazolam 0.25 mg tablet 0.25 mg PO .prn 09/01/20 01/31/22 Unknown History escitalopram oxalate 20 mg tablet 20 mg PO DAILY 09/01/20 01/31/22 Unknown History (Lexapro) Allergies Allergy/AdvReac Type Severity Reaction Status Date / Time Penicillins Allergy Mild Hives Verified 08/04/25 16:15 PMFSH Past Medical History Medical History Pneumonia 2020 Anxiety Surgical History Surgical History History of delivery Family History Family History Grandparent Diabetes mellitus Grandparent Acute myocardial infarction Father Hypertension High cholesterol Social History Social History Smoking status: Never smoker Alcohol intake: never Substance use: never Living arrangements: with family Comments At time of signature, I have reviewed and agree with nursing past medical, surgical, social and family history unless otherwise noted. Please see nursing chart for further information. There is no relevant family history pertinent to the presenting complaint Exam Narrative: GENERAL: Mildly ill-appearing, well-nourished, and in no acute distress. HEAD: Normocephalic, atraumatic. EYES: EOMI. No redness or drainage. Conjunctivae normal. ENT: Mucous membranes pink and slightly dry. Nares clear. No rhinorrhea. Throat normal. Uvula midline. NECK: Normal AROM. Supple. No lymphadenopathy. CHEST: No respiratory distress. Clear to auscultation. HEART: Regular rate and rhythm. No murmur appreciated. Normal peripheral pulses. ABDOMEN: Soft, nontender, nondistended, hyper active bowel sounds. EXTREMITIES: Normal range of motion. No edema. SKIN: Warm, dry, no rash. Capillary refill normal. Normal skin turgor. NEURO: No focal deficits. Alert and oriented x3. Gait steady. PSYCH: Normal affect. No signs of depression or anxiety. Course Course Level of Care: Express Care Visit Vital Signs Vital signs: Vital Signs Temperature 96.3 F L 08/04/25 16:26 Pulse Rate 72 08/04/25 16:26 Respiratory Rate 12 08/04/25 16:26 Blood Pressure 118/77 08/04/25 16:26 Pulse Oximetry 100 08/04/25 16:26 Oxygen Delivery Room Air 08/04/25 16:26 Temperature 96.3 F L 08/04/25 16:26 Pulse Rate 72 08/04/25 16:26 Respiratory Rate 12 08/04/25 16:26 Blood Pressure 118/77 08/04/25 16:26 Pulse Oximetry 100 08/04/25 16:26 Oxygen Delivery Room Air 08/04/25 16:26 Reviewed MDM MDM Narrative Medical decision making narrative: 35-year-old female patient presents today complaining of nausea, vomiting, diarrhea since last night. Reports 3 episodes of vomiting since last night, last this morning. Reports 20+ episodes of diarrhea, last just prior to arrival. Stool is watery without blood or mucus. Reports persistent nausea. Denies abdominal pain or fever. She has taken Imodium a Pepto this morning with some improvement in symptoms. She has not attempted oral fluids since last vomiting episode. No suspicious food intake, recent out of country travel. No known sick contacts. Exam patient is mildly ill appearing slightly dry mucous membranes and hyperactive bowel sounds. No abdominal tenderness. COVID negative, influenza negative 1739- Patient feeling better after 8mg ODT Zofran. 1756- PO challenge successful. Will prescribe some ODT Zofran for home use. Illness likely viral in etiology. Discussed oral rehydration, ED precautions and anticipatory guidance given. Patient agrees with plan. Vital signs stable. Differential Diagnosis Differential Diagnosis: Gastroenteritis, food poisoning, viral syndrome Lab Data MDM Lab Attestation statement: I personally reviewed the patient's lab results. Lab results narrative: COVID negative, influenza negative Labs: Lab Results 08/04/25 08/04/25 Range/Units 17:13 17:28 POC Influenza A Ag Negative Negative (Negative) POC Influenza B Ag Negative Negative (Negative) POC SARS CoV-2 Ag Negative Negative (Negative) Critical Care Time Critical Care Time Critical Care Time: No Discharge Plan Discharge Clinical Impression: Nausea vomiting and diarrhea Patient Disposition: Home Condition: Stable Instructions: Acute Nausea and Vomiting (DC), Acute Diarrhea (ED) Additional Instructions: Your COVID-19 and influenza tests are negative. Your symptoms are likely due to a viral illness, which is not treated with antibiotics. Virus symptoms can last for up to 7-10days. Take Tylenol for pain or fever. Rest and stay hydrated, with electrolyte containing fluids and water. If you are feeling dehydrated, please go to the ER immediately. Follow up with your PCP in 5 days if symptoms are not improving. Go to the ER immediately if you develop shortness of breath, difficulty swallowing, or any other concerning symptoms. Patient Language: Divehi Prescriptions: New ondansetron 8 mg tablet,disintegrating 8 mg PO Q4-6H PRN (Reason: nausea and vomiting) Qty: 20 0RF No Action escitalopram oxalate [Lexapro] 20 mg tablet 20 mg PO DAILY alprazolam 0.25 mg tablet 0.25 mg PO .prn Follow-up/Referrals: Alan,ALTON Lieberman [Primary Care Provider, Unknown] Stand Alone Forms: Work/School Release IP Time of Disposition: 18:05
[2025-08-04] MEDS: ONDANSETRON HCL ODT 4 MG TABLET 8 MG SUBLINGUAL (17:12)
[2025-08-04 17:15] LABS: EDCOVIDSCREEN Negative (Negative); EDINFLUASCREEN Negative (Negative); EDINFLUBSCREEN Negative (Negative)
[2025-08-04 17:30] LABS: EDCOVIDSCREEN Negative (Negative); EDINFLUASCREEN Negative (Negative); EDINFLUBSCREEN Negative (Negative)
== END 2025-08-04 18:10 | disposition home or self-care (01) ==
PROVIDERS: Emergency Provider Nurse Practitioner; PCP Physician Assistant
DX: R11.2 Nausea with vomiting, unspecified (principal); R19.7 Diarrhea, unspecified; Z20.822 Contact with and (suspected) exposure to COVID-19; F41.9 Anxiety disorder, unspecified
CPT/HCPCS: 87426; 87804; 99213; A9270; G0463